=== PATIENT | male | born 1980 | race Hispanic/Latino ===

== ENCOUNTER 2017-08-15 10:26 | Emergency (ER) | payer SELFPAY ==
[2017-08-15 11:39] LABS: #Basophils 0.1 thou/uL (0.0-0.2); #Eosinphils 0.2 thou/uL (0.0-0.7); #Lymphocytes 1.9 thou/uL (1.20-3.40); #Monocytes 0.4 thou/uL (0.11-0.59); #Neutrophils 3.1 thou/uL (1.40-6.50); %Eosinophils 3.5 % (0.0-10.0); %Lymphocytes 33.1 % (21.0-51.0); %Monocytes 7.3 % (0.0-10.0); %Neutrophils 55.2 % (42.0-75.0); Mean Corpuscular HGB CONC 33.8 g/dL (32.0-36.0); Mean Corpuscular Volume 94.9 fl (80.0-94.0); Mean Platelet Volume 7.7 fL (7.4-10.4); Platelet Count 246 thou/uL (130-400); RBC Distribution Width 11.9 % (11.5-14.5); Red Blood Cell (RBC) Count 4.99 mill/uL (4.70-6.10); White Blood Cell (WBC) Count 5.7 thou/uL (4.8-10.8)
[2017-08-15] MEDS ORDERED: Ondansetron HCl/PF 4 MG/2 ML Vial ONE (11:39)
[2017-08-15 11:52] LABS: Bilirubin Negative (Negative); Blood, Urine Negative (Negative); Clarity CLEAR (Clear); Glucose, Urine (Dipstick) Negative (Negative); Leukocyte Negative (Negative); Nitrite Negative (Negative); Protein, Urine (Dipstick) Negative (Neg-Trace); Specific Gravity, Urine 1.027 (1.002-1.036)
[2017-08-15 12:01] LABS: ALT (SGPT) 200 U/L (8-55); AST (SGOT) 140 U/L (5-34); Albumin 4.4 g/dL (3.5-5.0); Alkaline Phosphatase 86 U/L (40-150); Anion Gap 12 mmol/L (10-20); BUN (Urea Nitrogen) 13 mg/dL (8.9-20.6); Bilirubin, Total 0.6 mg/dL (0.2-1.2); Calc. Creatinine Clearance 0 mL/min (70-130); Calcium 9.5 mg/dL (7.8-10.44); Carbon Dioxide 22 mmol/L (22-29); Chloride 105 mmol/L (98-107); Estimated GFR-MDRD Greater than 90; Globulin 3.8 g/dL (2.4-3.5); Glucose 88 mg/dL (70-105); Lipase 46 U/L (8-78); Protein, Total 8.2 g/dL (6.0-8.3); Sodium 135 mmol/L (136-145)
--- NOTE | 2017-08-15 12:08 | ULT ---
ULTRASOUND ABDOMEN LIMITED: (RIGHT UPPER QUADRANT) HISTORY: 37-year-old male with post prandial diffuse abdominal pain. FINDINGS: The gallbladder has normal wall thickness and has no evidence of gallstones or sludge. The hepatic e chogenicity is diffusely increased, consistent with fatty liver. The right kidney has normal echogen icity and has no hydronephrosis. The pancreas is obscured by bowel gas. There is no biliary dilatio n. The common duct caliber is 3 mm. IMPRESSION: 1) Hepatosteatosis. 2) No other pathology identified. 3) Pancreas not visualized. janette POS: [facility]
--- NOTE | 2017-08-15 13:35 | CT ---
ABDOMEN AND PELVIC CT SCAN WITH IV CONTRAST: History: 37-year-old male with abdominal pain for two weeks. FINDINGS: The lung bases are clear. Small hiatal hernia. Fatty changes in the liver. Gallbladder, pancreas, spl een, and adrenal glands are unremarkable. No renal calculus or acute obstruction. Normal appearing appendix. No bowel obstruction, abscess, adenopathy or abnormal fluid collection withint he abdomen or pelvis. IMPRESSION: No significant acute process in the abdomen or pelvis. Fatty changes in the liver. Small hiatal herni a. No other significant acute process. POS: [facility]
[2017-08-15] MEDS ORDERED: ISOVUE-370 76%-LOCM 1 ML ONE (14:28)
== END 2017-08-15 14:29 | disposition home or self-care (01) ==
LOC: ERS 10:26
DX: R10.13 Epigastric pain (principal); R10.11 Right upper quadrant pain; R74.8 Abnormal levels of other serum enzymes; F17.210 Nicotine dependence, cigarettes, uncomplicated
CPT/HCPCS: 36415; 74177; 76705; 80053; 81003; 82150; 83690; 85025; 96361; 96374; 96375; J2270; J2405